=== PATIENT | female | born 1980 | race Caucasian/White ===

== ENCOUNTER → 2016-12-13 | Outpatient (CLI) | payer BC, OTHER ==
--- NOTE | 2016-12-13 12:19 | XR ---
EXAMINATION TYPE: XR chest 2V DATE OF EXAM ORDERED: 12/13/2016 HISTORY: R05 Cough. REFERENCE: None. FINDINGS: The lungs are clear. Pleural spaces are clear. Heart size is normal. IMPRESSION: NORMAL CHEST.
== END | disposition home or self-care (01) ==
LOC: RADXRMAIN 11:36
PROVIDERS: ATTEND Family Medicine
DX: R05 Cough (principal)
CPT/HCPCS: 71020

== ENCOUNTER 2018-07-23 21:30 | Observation (INO) | payer BC, OTHER ==
[2018-07-23] MEDS ORDERED: KETOROLAC 30 MG/ML 1 ML VIAL IVP STA (23:12)
--- NOTE | 2018-07-23 23:12 | ED ---
General Adult HPI - General Source: patient, family Mode of arrival: ambulatory Limitations: no limitations <Marek Venegas - Last Filed: 07/24/18 02:12> <Giorgi Combs - Last Filed: 07/24/18 08:41> - General Chief complaint: Abdominal Pain Stated complaint: Abd.pain Time Seen by Provider: 07/23/18 22:58 - History of Present Illness Initial comments: 38 year old female since to the emergency department for a chief complaint of abdominal pain. Patient states this started this morning. Patient states the pain is in the right side of the abdomen mostly in the lower area. Patient states this is worsened with eating. Patient states she's also feels bloated. Patient states walking makes the pain worse. She states laying flat does make it better but it is still painful. She denies fevers or chills. Patient has no other complaints at this time including shortness of breath, chest pain, nausea or vomiting, headache, or visual changes. (Marek Venegas) - Related Data Allergies Allergy/AdvReac Type Severity Reaction Status Date / Time No Known Allergies Allergy Verified 07/24/18 08:03 Review of Systems ROS Other: All systems not noted in ROS Statement are negative. <Marek Venegas - Last Filed: 07/24/18 02:12> ROS Other: All systems not noted in ROS Statement are negative. <Giorgi Combs - Last Filed: 07/24/18 08:41> ROS Statement: Those systems with pertinent positive or pertinent negative responses have been documented in the HPI. Past Medical History Past Medical History: No Reported History Additional Past Medical History / Comment(s): depression History of Any Multi-Drug Resistant Organisms: None Reported Past Surgical History: Section Past Psychological History: Depression Smoking Status: Current every day smoker Past Alcohol Use History: Occasional Past Drug Use History: None Reported <Marek Venegas - Last Filed: 07/24/18 02:12> General Exam Limitations: no limitations General appearance: alert, in no apparent distress Head exam: Present: atraumatic, normocephalic, normal inspection Eye exam: Present: normal appearance, PERRL, EOMI. Absent: scleral icterus, conjunctival injection, periorbital swelling ENT exam: Present: normal exam, mucous membranes moist Neck exam: Present: normal inspection, full ROM. Absent: tenderness, meningismus, lymphadenopathy Respiratory exam: Present: normal lung sounds bilaterally. Absent: respiratory distress, wheezes, rales, rhonchi, stridor Cardiovascular Exam: Present: regular rate, normal rhythm, normal heart sounds. Absent: systolic murmur, diastolic murmur, rubs, gallop, clicks GI/Abdominal exam: Present: soft, tenderness (Tenderness noted in the right lower quadrant, positive obturator sign, positive guarding without rebound.), normal bowel sounds. Absent: distended, guarding, rebound, rigid Neurological exam: Present: alert, oriented X3, CN II-XII intact Psychiatric exam: Present: normal affect, normal mood <Marek Venegas - Last Filed: 07/24/18 02:12> Vital Signs 07/23/18 07/23/18 07/24/18 22:14 23:19 01:16 Temperature 98.9 F 98.1 F Pulse Rate 100 61 Respiratory 20 18 18 Rate Blood Pressure 124/82 103/59 O2 Sat by Pulse 111 H 97 Oximetry 07/24/18 07/24/18 01:52 03:19 Temperature 98.9 F Pulse Rate 76 69 Respiratory 18 18 Rate Blood Pressure 121/80 99/77 O2 Sat by Pulse 98 96 Oximetry Medical Decision Making - Lab Data Result diagrams: 07/23/18 23:35 07/23/18 23:35 <Marek Venegas - Last Filed: 07/24/18 02:12> - Lab Data Result diagrams: 07/23/18 23:35 07/23/18 23:35 <Giorgi Combs - Last Filed: 07/24/18 08:41> - Medical Decision Making [id number] female presents to the emergency department for a chief complaint of abdominal pain times one day. Patient states it is mostly in the right side of the abdomen. On exam patient does have tenderness isn't in the right lower quadrant with guarding, no rebound. Patient does have leukocytosis of 15. CT of the abdomen shows a dilated appendix measuring 9-10 mm with adjacent stranding suggesting acute nonperforated appendicitis. There is also small amount of free fluid in the pelvis. Blood cultures pending. Unasyn started. Patient will be admitted for further management. (Theo,Marek P) I saw this patient in conjunction with the physician painter assistant. I performed independent history and physical exam. Agree with case management. Case discussed with Dr. Ramirez ([facility]) - Lab Data Lab Results 07/23/18 07/23/18 07/23/18 Range/Units 23:30 23:30 23:35 WBC (3.8-10.6) k/uL RBC (3.80-5.40) m/uL Hgb (11.4-16.0) gm/dL Hct (34.0-46.0) % MCV (80.0-100.0) fL MCH (25.0-35.0) pg MCHC (31.0-37.0) g/dL RDW (11.5-15.5) % Plt Count (150-450) k/uL Neutrophils % % Lymphocytes % % Monocytes % % Eosinophils % % Basophils % % Neutrophils # (1.3-7.7) k/uL Lymphocytes # (1.0-4.8) k/uL Monocytes # (0-1.0) k/uL Eosinophils # (0-0.7) k/uL Basophils # (0-0.2) k/uL Sodium 136 L (137-145) mmol/L Potassium 4.9 (3.5-5.1) mmol/L Chloride 106 (98-107) mmol/L Carbon Dioxide 23 (22-30) mmol/L Anion Gap 7 mmol/L BUN 13 (7-17) mg/dL Creatinine 0.62 (0.52-1.04) mg/dL Est GFR (CKD-EPI)AfAm >90 (>60 ml/min/1.73 sqM) Est GFR (CKD-EPI)NonAf >90 (>60 ml/min/1.73 sqM) Glucose 99 (74-99) mg/dL Calcium 9.5 (8.4-10.2) mg/dL Total Bilirubin 0.9 (0.2-1.3) mg/dL AST 19 (14-36) U/L ALT 21 (9-52) U/L Alkaline Phosphatase 56 (38-126) U/L Total Protein 6.7 (6.3-8.2) g/dL Albumin 4.1 (3.5-5.0) g/dL Amylase 34 (30-110) U/L Lipase 25 (23-300) U/L Urine Color Yellow Urine Appearance Clear (Clear) Urine pH 6.0 (5.0-8.0) Ur Specific [place] 1.016 (1.001-1.035) Urine Protein Negative (Negative) Urine Glucose (UA) Negative (Negative) Urine Ketones 3+ H (Negative) Urine Blood Negative (Negative) Urine Nitrite Negative (Negative) Urine Bilirubin Negative (Negative) Urine Urobilinogen <2.0 (<2.0) mg/dL Ur Leukocyte Esterase Negative (Negative) Urine HCG, Qual Not Detected (Not Detectd) 07/23/18 Range/Units 23:35 WBC 15.5 H (3.8-10.6) k/uL RBC 4.50 (3.80-5.40) m/uL Hgb 13.7 (11.4-16.0) gm/dL Hct 42.5 (34.0-46.0) % MCV 94.3 (80.0-100.0) fL MCH 30.5 (25.0-35.0) pg MCHC 32.4 (31.0-37.0) g/dL RDW 13.5 (11.5-15.5) % Plt Count 231 (150-450) k/uL Neutrophils % 81 % Lymphocytes % 13 % Monocytes % 4 % Eosinophils % 0 % Basophils % 0 % Neutrophils # 12.6 H (1.3-7.7) k/uL Lymphocytes # 2.0 (1.0-4.8) k/uL Monocytes # 0.7 (0-1.0) k/uL Eosinophils # 0.0 (0-0.7) k/uL Basophils # 0.0 (0-0.2) k/uL Sodium (137-145) mmol/L Potassium (3.5-5.1) mmol/L Chloride (98-107) mmol/L Carbon Dioxide (22-30) mmol/L Anion Gap mmol/L BUN (7-17) mg/dL Creatinine (0.52-1.04) mg/dL Est GFR (CKD-EPI)AfAm (>60 ml/min/1.73 sqM) Est GFR (CKD-EPI)NonAf (>60 ml/min/1.73 sqM) Glucose (74-99) mg/dL Calcium (8.4-10.2) mg/dL Total Bilirubin (0.2-1.3) mg/dL AST (14-36) U/L ALT (9-52) U/L Alkaline Phosphatase (38-126) U/L Total Protein (6.3-8.2) g/dL Albumin (3.5-5.0) g/dL Amylase (30-110) U/L Lipase (23-300) U/L Urine Color Urine Appearance (Clear) Urine pH (5.0-8.0) Ur Specific [place] (1.001-1.035) Urine Protein (Negative) Urine Glucose (UA) (Negative) Urine Ketones (Negative) Urine Blood (Negative) Urine Nitrite (Negative) Urine Bilirubin (Negative) Urine Urobilinogen (<2.0) mg/dL Ur Leukocyte Esterase (Negative) Urine HCG, Qual (Not Detectd) Disposition Is patient prescribed a controlled substance at d/c from ED?: No Time of Disposition: 01:32 <Marek Venegas - Last Filed: 07/24/18 02:12> <Giorgi Combs - Last Filed: 07/24/18 08:41> Clinical Impression: Appendicitis Disposition: ADMITTED IP TO THIS HOSP Condition: Good
[2018-07-24 00:13] LABS: Appearance,Urine Clear (Clear); Bilirubin,Urine Negative (Negative); Blood,Urine Negative (Negative); Color,Urine Yellow; Glucose,Urine (UA) Negative (Negative); Ketones,Urine 3+ (Negative); Leukocyte Esterase,Urine Negative (Negative); Nitrite,Urine Negative (Negative); Protein,Urine Negative (Negative); Specific Gravity,Urine 1.016 (1.001-1.035); Urobilinogen,Urine <2.0 mg/dL (<2.0)
[2018-07-24 00:14] LABS: Basophils % (A) 0 %; Eosinophils % (A) 0 %; HCT 42.5 % (34.0-46.0); HGB 13.7 gm/dL (11.4-16.0); Lymphocytes % (A) 13 %; MCH 30.5 pg (25.0-35.0); MCHC 32.4 g/dL (31.0-37.0); MCV 94.3 fL (80.0-100.0); Monocytes # (A) 0.7 k/uL (0-1.0); Monocytes % (A) 4 %; Neutrophils # (A) 12.6 k/uL (1.3-7.7); Neutrophils % (A) 81 %; Platelet Count 231 k/uL (150-450); RDW 13.5 % (11.5-15.5); WBC 15.5 k/uL (3.8-10.6)
[2018-07-24 00:26] LABS: ALT 21 U/L (9-52); AST 19 U/L (14-36); Albumin 4.1 g/dL (3.5-5.0); Alkaline Phosphatase 56 U/L (38-126); Amylase 34 U/L (30-110); Anion Gap 7 mmol/L; Blood Urea Nitrogen 13 mg/dL (7-17); Calcium 9.5 mg/dL (8.4-10.2); Carbon Dioxide 23 mmol/L (22-30); Chloride 106 mmol/L (98-107); Glucose 99 mg/dL (74-99); Lipase 25 U/L (23-300); Potassium 4.9 mmol/L (3.5-5.1); Sodium 136 mmol/L (137-145); Total Bilirubin 0.9 mg/dL (0.2-1.3); Total Protein 6.7 g/dL (6.3-8.2)
[2018-07-24] MEDS ORDERED: SODIUM CHLORIDE 0.9% 1,000 ML IV STA (00:45)
--- NOTE | 2018-07-24 01:15 | CT ---
EXAM: CT Abdomen and Pelvis With Intravenous Contrast CLINICAL HISTORY: Abdominal pain TECHNIQUE: Axial computed tomography images of the abdomen and pelvis with intravenous contrast. CTDI is 0.085, 0.085, 8.4, 24 mGy and DLP is 756.7 mGy-cm. This CT exam was performed using one or more of the following dose reduction techniques: automated exposure control, adjustment of the mA and/or kV according to patient size, and/or use of iterative reconstruction technique. COMPARISON: Ultrasound abdomen dated 11/25/2014 FINDINGS: Lung bases: Unremarkable. No mass. No consolidation. ABDOMEN: Liver: Unremarkable. Gallbladder and bile ducts: Unremarkable. Pancreas: Unremarkable. Spleen: Unremarkable. Adrenals: Unremarkable. Kidneys and ureters: Nonobstructing calculus within the right kidney. Cysts within the right kidney. Stomach and bowel: Unremarkable. PELVIS: Appendix: Dilated appendix measuring 9-10 mm with adjacent stranding suggesting acute nonperforated appendicitis. Bladder: Unremarkable. Reproductive: Involuting follicle within left ovary. ABDOMEN and PELVIS: Intraperitoneal space: Small amount of free fluid the pelvis. Bones/joints: No acute fracture. No dislocation. Soft tissues: Unremarkable. Vasculature: Unremarkable. No abdominal aortic aneurysm. Lymph nodes: Unremarkable. Tubes, lines and devices: Tube occlusion device is noted. IMPRESSION: 1. Dilated appendix measuring 9-10 mm with adjacent stranding suggesting acute nonperforated appendicitis. 2. Small amount of free fluid the pelvis. 3. Nonobstructing calculus within the right kidney.
[2018-07-24] MEDS ORDERED: MORPHINE SULFATE 4 MG/ML SYRINGE IVP STA (01:23)
[2018-07-24] MEDS ORDERED: ONDANSETRON 4 MG/2 ML VIAL IVP PRN (02:10)
[2018-07-24] MEDS ORDERED: NALOXONE 0.4 MG/ML 1 ML VIAL IV PRN (02:10)
[2018-07-24] MEDS: AMPICILLIN-SULBACTAM 3 GM in SODIUM CHLORIDE 0.9% 100 ML IVPB SCH ×3 (02:12→17:38)
[2018-07-24] MEDS ORDERED: ACETAMINOPHEN IV (For NPO) 1,000 MG in EMPTY BAG 1 BAG IVPB PRN (02:12)
[2018-07-24] MEDS: SODIUM CHLORIDE 0.9% 1,000 ML IV SCH ×3 (02:14→23:52)
[2018-07-24] MEDS: MORPHINE SULFATE 4 MG/ML SYRINGE IV PRN ×3 (08:56→20:11)
[2018-07-24] MEDS: LORazepam 2 MG/ML INJ IV PRN ×2 (09:24→22:17)
--- NOTE | 2018-07-24 11:26 | P.HPIM ---
<Deedee Bishop A - Last Filed: 07/24/18 11:23> History of Present Illness H&P Date: 07/24/18 Chief Complaint: abdominal pain CHIEF COMPLAINT: Abdominal pain HISTORY OF PRESENT ILLNESS: 38 year old female who presented to the emergency room due to a chief complaint of right lower quadrant abdominal pain lasting one day in duration. Patient reports nausea but denies emesis. She denies constipation or diarrhea. WBC on admission 15.5. PAST MEDICAL HISTORY: See list. PAST SURGICAL HISTORY: See list. MEDICATIONS: See list. ALLERGIES: See list. SOCIAL HISTORY: No illicit drug use. REVIEW OF SYSTEMS: CONSTITUTIONAL: Denies fever or chills. HEENT: Denies blurred vision, vision changes, or eye pain. Denies hemoptysis ENDOCRINE: Denies heat or cold intolerance. CARDIOVASCULAR: Denies chest pain or pressure. RESPIRATORY: No shortness of breath. GASTROINTESTINAL: Reports right lower quadrant abdominal pain. Reports nausea. Denies vomiting. NEURO: Denies history of seizures. PSYCH: No depression or suicidal ideation HEMATOLOGIC: Denies bleeding disorders. LYMPHATIC: The patient denies any lumps and bumps around the neck. GENITOURINARY: Denies any blood in urine or increased urinary frequency. MUSCULOSKELETAL: Denies myalgias. Denies joint swelling. Denies decreased range of motion beyond patients baseline. SKIN: Denies pruitis. Denies rash. PHYSICAL EXAM: VITAL SIGNS: Currently stable. GENERAL: Well-developed in no acute distress. HEENT: No sclera icterus. Extraocular movements grossly intact. Moist buccal mucosa. Head is atraumatic, normocephalic. Hears conversational speech. No nasal drainage. NECK: Supple without lymphadenopathy. CHEST: Non-labored respirations and equal bilateral excursions. CARDIOVASCULAR: Regular rate with regular rhythm. Palpable 2+ radial pulses. ABDOMEN: Soft. Nondistended. Pain and tenderness upon palpation of right lower quadrant. MUSCULOSKELETAL: No clubbing, cyanosis or edema. NEUROLOGIC: No focal or lateralizing signs. Cranial nerves II through XII grossly intact. PSYCH: Appropriate affect. Alert and oriented to person, place and time. SKIN: Well perfused. Good skin turgor. IMAGING: CT abdomen and pelvis: Dilated appendix measuring 9-10 mm with adjacent stranding suggesting acute nonperforated appendicitis ASSESSMENT: 1. Acute appendicitis 2. Leukocytosis PLAN: 1. Nothing by mouth 2. Continue IV fluids 3. Antibiotics 4. Patient scheduled for laparoscopic appendectomy today with Dr. Ramirez. Nurse practitioner note has been reviewed by physician. Signing provider agrees with the documented findings, assessment, and plan of care. Past Medical History Past Medical History: No Reported History Additional Past Medical History / Comment(s): depression History of Any Multi-Drug Resistant Organisms: None Reported Past Surgical History: Section Past Psychological History: Depression Smoking Status: Current every day smoker Past Alcohol Use History: Occasional Past Drug Use History: None Reported Medications and Allergies Home Medications Medication Instructions Recorded Confirmed Type Acetaminophen Tab [Tylenol Tab] 650 mg PO Q6H PRN 07/24/18 07/24/18 History Citalopram Hydrobromide 40 mg PO DAILY 07/24/18 07/24/18 History [Citalopram HBr] Allergies Allergy/AdvReac Type Severity Reaction Status Date / Time No Known Allergies Allergy Verified 07/24/18 08:03 Physical Exam Vitals: Vital Signs Temp Pulse Pulse Resp BP BP Pulse Ox 07/24/18 09:34 76 18 07/24/18 09:00 98.2 F 76 18 133/86 97 07/24/18 08:52 97.6 F 71 18 107/63 97 07/24/18 03:19 98.9 F 69 18 99/77 96 07/24/18 03:00 121/74 95 07/24/18 02:00 121/80 95 07/24/18 01:52 76 18 121/80 98 07/24/18 01:16 98.1 F 61 18 103/59 97 07/23/18 23:19 18 07/23/18 22:14 98.9 F 100 20 124/82 111 H Intake and Output 07/23/18 07/24/18 07/24/18 22:59 06:59 14:59 Other: Voiding Method Toilet Weight 68.039 kg 64.5 kg Results CBC & Chem 7: 07/23/18 23:35 07/23/18 23:35 Labs: Abnormal Lab Results - Last 24 Hours (Table) 07/23/18 07/23/18 07/23/18 Range/Units 23:30 23:35 23:35 WBC 15.5 H (3.8-10.6) k/uL Neutrophils # 12.6 H (1.3-7.7) k/uL Sodium 136 L (137-145) mmol/L Plasma Lactic Acid Job (0.7-2.0) mmol/L Urine Ketones 3+ H (Negative) 07/24/18 Range/Units 01:47 WBC (3.8-10.6) k/uL Neutrophils # (1.3-7.7) k/uL Sodium (137-145) mmol/L Plasma Lactic Acid Job 0.6 L (0.7-2.0) mmol/L Urine Ketones (Negative) <Dajuan Ramirez - Last Filed: 07/24/18 12:02> Physical Exam Vitals: Vital Signs Temp Pulse Pulse Resp BP BP Pulse Ox 07/24/18 11:36 98.4 F 68 16 119/70 98 07/24/18 09:34 76 18 07/24/18 09:00 98.2 F 76 18 133/86 97 07/24/18 08:52 97.6 F 71 18 107/63 97 07/24/18 03:19 98.9 F 69 18 99/77 96 07/24/18 03:00 121/74 95 07/24/18 02:00 121/80 95 07/24/18 01:52 76 18 121/80 98 07/24/18 01:16 98.1 F 61 18 103/59 97 07/23/18 23:19 18 07/23/18 22:14 98.9 F 100 20 124/82 111 H Intake and Output 07/23/18 07/24/18 07/24/18 22:59 06:59 14:59 Other: Voiding Method Toilet Weight 68.039 kg 64.5 kg Results CBC & Chem 7: 07/23/18 23:35 07/23/18 23:35 Labs: Abnormal Lab Results - Last 24 Hours (Table) 07/23/18 07/23/18 07/23/18 Range/Units 23:30 23:35 23:35 WBC 15.5 H (3.8-10.6) k/uL Neutrophils # 12.6 H (1.3-7.7) k/uL Sodium 136 L (137-145) mmol/L Plasma Lactic Acid Job (0.7-2.0) mmol/L Urine Ketones 3+ H (Negative) 07/24/18 Range/Units 01:47 WBC (3.8-10.6) k/uL Neutrophils # (1.3-7.7) k/uL Sodium (137-145) mmol/L Plasma Lactic Acid Job 0.6 L (0.7-2.0) mmol/L Urine Ketones (Negative) Assessment and Plan Assessment: We'll perform laparoscopic appendectomy
[2018-07-24] MEDS ORDERED: IV FLUID CONTINUATION 1,000 ML IV ONE (11:52)
[2018-07-24] MEDS ORDERED: DEXAMETHASONE SOD PHOSPHATE 10 MG/ML 1 ML VIAL IV ONE (12:05)
[2018-07-24] MEDS ORDERED: HEPARIN SODIUM,PORCINE 5,000 UNIT/ML 1 ML VIAL SQ ONE (12:11)
[2018-07-24] MEDS ORDERED: MIDAZOLAM 2 MG/2 ML VIAL IVP ONE (12:12)
[2018-07-24] MEDS ORDERED: PROPOFOL 10 MG/ML 20 ML VIAL IV ONE (12:32)
[2018-07-24] MEDS ORDERED: fentaNYL (PF) 50 MCG/ML 2 ML AMP ONE (12:32)
[2018-07-24] MEDS ORDERED: MIDAZOLAM 2 MG/2 ML VIAL ONE (12:32)
[2018-07-24] MEDS ORDERED: NEOSTIGMINE 1 MG/ML 10 ML VIAL ONE (12:32)
[2018-07-24] MEDS ORDERED: GLYCOPYRROLATE 0.2 MG/ML 2 ML VIAL ONE (12:32)
[2018-07-24] MEDS ORDERED: ROCURONIUM BROMIDE 10 MG/ML 10 ML VIAL IV ONE (12:32)
[2018-07-24] MEDS ORDERED: LIDOCAINE 1% INJ 10MG/ML (20 ML MDV) ONE (12:32)
[2018-07-24] MEDS ORDERED: BUPIVACAIN-EPI 0.25%-1:200,000 30 ML VIAL SQ ONE (12:35)
--- NOTE | 2018-07-24 13:13 | P.OP ---
Date of Procedure: 07/24/18 Preoperative Diagnosis: Acute appendicitis Postoperative Diagnosis: Acute appendicitis Procedure(s) Performed: Laparoscopic appendectomy Anesthesia: NINI Surgeon: Dajuan Ramirez Estimated Blood Loss (ml): 5 Pathology: other (Appendix) Condition: stable Disposition: PACU Description of Procedure: Iva patient's placed on the operating table in the supine position. The patient received general anesthesia. The abdomen was prepped and draped in the usual sterile fashion. The skin was anesthetized 1% local Xylocaine at the trocar sites. Using an 11 blade the skin was incised at the umbilicus. The umbilicus was grasped with a Arnold clamp and then a Veress needle was placed into the peritoneal cavity. Position of the Veress needle was confirmed with positive drop test. After adequate insufflation a 5 mm trocar was placed into the peritoneal cavity. The abdomen was further insufflated. And then the laparoscope was placed in the peritoneal cavity. Next a 5 mm trocar was placed in the midline suprapubic position. And then a 10 mm trocar was placed in the midline epigastric position. The patient was rotated with the right side up and in Trendelenburg. The appendix was visualized. The appendix appeared to be inflamed. The appendix was grasped and then using the Harmonic scissors the mesoappendix was divided. A PDS Endoloop was then placed around the base of the appendix. And then the appendix was divided using Harmonic scissors. The appendix was placed into an Endo Catch and brought out through the 10 mm trocar site. The abdomen was irrigated. There is no bleeding seen. The trochars withdrawn. The skin was closed interrupted 3-0 Monocryl suture. Dermabond dressing was applied. Patient was sent to recovery room in stable condition.
[2018-07-24] MEDS ORDERED: HYDROmorphone 1 MG/ML 1 ML SYRINGE IVP ONE (13:31)
[2018-07-24] MEDS: CITALOPRAM HYDROBROMIDE 20 MG TAB PO SCH (21:53)
[2018-07-25] MEDS: MORPHINE SULFATE 4 MG/ML SYRINGE IV PRN ×3 (00:33→12:35)
[2018-07-25] MEDS: AMPICILLIN-SULBACTAM 3 GM in SODIUM CHLORIDE 0.9% 100 ML IVPB SCH ×2 (02:12→09:56)
[2018-07-25 07:45] VITALS: BP 117/71; RESP 16; TEMP 98.1
[2018-07-25] MEDS: CITALOPRAM HYDROBROMIDE 20 MG TAB PO SCH (08:30)
[2018-07-25 08:59] VITALS: PULSE 55
[2018-07-25] MEDS ORDERED: HYDROcodone/APAP 7.5-325MG 1 EACH TAB PO PRN (09:17)
[2018-07-25] MEDS ORDERED: ACETAMINOPHEN TAB 500 MG TAB PO PRN (13:05)
--- NOTE | 2018-07-26 06:34 | P.DS ---
Providers Date of admission: 07/24/18 01:33 Expected date of discharge: 07/25/18 Attending physician: Dajuan Ramirez Primary care physician: Lang Lazar [facility] Course: This is a 38-year-old female who was admitted to the hospital for acute appendicitis. Patient underwent laparoscopic appendectomy. Please see hospital chart for details. Patient did well postoperatively. Procedures: Laparoscopic appendectomy Patient Condition at Discharge: Good Plan - Discharge Summary Discharge Rx Participant: No New Discharge Prescriptions: New Docusate [Colace] 100 mg PO BID #20 capsule HYDROcodone/APAP 7.5-325MG [[place] 7.5-325] 1 tab PO Q4H PRN 3 Days #18 tab PRN Reason: Pain No Action Acetaminophen Tab [Tylenol Tab] 650 mg PO Q6H PRN PRN Reason: Pain Citalopram Hydrobromide [Citalopram HBr] 40 mg PO DAILY Discharge Medication List Acetaminophen Tab [Tylenol Tab] 650 mg PO Q6H PRN 07/24/18 [History] Citalopram Hydrobromide [Citalopram HBr] 40 mg PO DAILY 07/24/18 [History] Docusate [Colace] 100 mg PO BID #20 capsule 07/25/18 [Rx] HYDROcodone/APAP 7.5-325MG [[place] 7.5-325] 1 tab PO Q4H PRN 3 Days #18 tab 07/25 [Rx] Follow up Appointment(s)/Referral(s): Nathan Lazar MD [Primary Care Provider] - 08/01/18 10:10 am (please arrive a few minutes early to fill out paperwork. please bring insurance cards and drivers license with you. ) Dajuan Ramirez MD [STAFF PHYSICIAN] - 1 Week Discharge Disposition: HOME SELF-CARE
== END 2018-07-25 15:19 | disposition home or self-care (01) ==
LOC: EC 21:30 → 3NMEDONC 07-24 01:33 → 1SOBS 07-24 08:35
PROVIDERS: ADMIT Surgery; ATTEND Surgery
DX: K35.80 Unspecified acute appendicitis (principal); F32.9 Major depressive disorder, single episode, unspecified; F17.210 Nicotine dependence, cigarettes, uncomplicated; Z79.899 Other long term (current) drug therapy
CPT/HCPCS: 44970; 96376; 96361; 96374; 96375; 99285; 36415; 88304; 80053; 82150; 83605; 83690; 85025; 81003; 81025; 87040; 74177; G0378 ×3; J2250; J2060; J2270 ×2; J1644; J1100; J2710; J2405; J2001; J3010; J1885; J1170; J0295 ×2; J2704; Q9967

== ENCOUNTER → 2019-06-21 | Outpatient (CLI) | payer SELFPAY ==
[2019-06-21 16:26] LABS: Basophils # (A) 0.1 k/uL (0-0.2); Basophils % (A) 1 %; Eosinophils # (A) 0.1 k/uL (0-0.7); Eosinophils % (A) 2 %; HCT 45.9 % (34.0-46.0); HGB 14.7 gm/dL (11.4-16.0); Lymphocytes # (A) 2.3 k/uL (1.0-4.8); Lymphocytes % (A) 40 %; MCH 31.2 pg (25.0-35.0); MCV 97.7 fL (80.0-100.0); Mean Platelet Volume 9.9; Monocytes # (A) 0.3 k/uL (0-1.0); Monocytes % (A) 5 %; Neutrophils # (A) 2.8 k/uL (1.3-7.7); Neutrophils % (A) 48 %; Platelet Count 216 k/uL (150-450); RDW 13.3 % (11.5-15.5); WBC 5.9 k/uL (3.8-10.6)
[2019-06-21 18:32] LABS: Erythrocyte Sedimentation Rate 2 mm/hr (0-20)
[2019-06-21 23:47] LABS: % Iron Saturation 21.74 (12.00-45.00); African American GFR (CKD) 125.6 (60.0-200.0); Albumin 4.8 g/dL (3.80-4.90); Albumin/Globulin Ratio 2.53 (1.60-3.17); Anion Gap 7.6 mmol/L (4.00-12.00); BUN/Creat Ratio 14.29 Ratio (12.00-20.00); Carbon Dioxide 25.4 mmol/L (21.6-31.8); Globulin 1.9 g/dL (1.6-3.3); Non-African American GFR(CKD) 108.4 (60.0-200.0); Potassium 5.2 mmol/L (3.5-5.5); Total Bilirubin 0.8 mg/dL (0.2-1.2); Total Protein 6.7 g/dL (6.2-8.2)
[2019-06-21 23:54] LABS: T4, Free (Free Thyroxine) 1.1 ng/dL (0.80-1.80)
[2019-06-21 23:59] LABS: Ferritin 11.8 ng/mL (10.0-291.0)
[2019-06-22 00:45] LABS: Protein, Total 6.7 g/dL (6.2-8.2)
[2019-06-24 13:20] LABS: Albumin 4.3 g/dL (3.80-4.90); Gamma Globulin 0.85 g/dL (0.70-1.50)
== END | disposition home or self-care (01) ==
LOC: LABWHC1 15:04
PROVIDERS: ATTEND Nurse Practitioner Family
DX: R63.4 Abnormal weight loss (principal); Z80.6 Family history of leukemia
CPT/HCPCS: 36415; 80053; 82728; 83540; 83550; 84165; 84439; 84443; 84481; 85025; 85652

== ENCOUNTER → 2021-09-28 | Outpatient (CLI) | payer OTHER ==
--- NOTE | 2021-09-28 16:02 | US ---
EXAMINATION TYPE: US pelvis complete transvag DATE OF EXAM: 09/28/2021 COMPARISON: NONE CLINICAL HISTORY: 41-year-old female N93.9 ABNORMAL UTERINE AND VAGINAL BLEEDING, unspecified. DUB fo r a few weeks, pelvic pain, tubal ligation, , 3 c-sections TECHNIQUE: Transabdominal sonographic images of the pelvis were acquired. Transvaginal sonographic i mages were medically necessary to better assess the following anatomy: all organs Date of LMP: 08/20/2021 FINDINGS: EXAM MEASUREMENTS: Uterus: 9.6 x 6.2 x 4.2 cm Endometrial Stripe: 0.5 cm Right Ovary: 2.8 x 2.2 x 2.3 cm Left Ovary: 3.0 x 2.5 x 2.1 cm 1. Uterus: Anteverted and otherwise wnl. Normal scar noted along the anterior lower uteri ne segment. 2. Endometrium: wnl 3. Right Ovary: wnl 4. Left Ovary: wnl 5. Bilateral Adnexa: wnl 6. Posterior cul-de-sac: mild free fluid IMPRESSION: Mild cul-de-sac free fluid likely physiologic. Normal follicular change in the ovaries. Endometrial s tripe measuring 5 mm.
[2021-09-28 18:47] LABS: Basophils # (A) 0.07 X 10*3/uL (0.00-0.10); Basophils % (A) 1.2 %; Eosinophils # (A) 0.21 X 10*3/uL (0.04-0.35); Eosinophils % (A) 3.6 %; HGB 13.1 g/dL (12.0-15.0); Immature Grans, Automated 0.2 %; Lymphocytes # (A) 2.57 X 10*3/uL (0.90-5.00); Lymphocytes % (A) 43.7 %; MCH 31.6 pg (27.0-32.0); MCHC 32.8 g/dL (32.0-37.0); MCV 96.6 fL (80.0-97.0); Mean Platelet Volume 12.5 fL (9.5-12.2); Monocytes # (A) 0.54 X 10*3/uL (0.20-1.00); Monocytes % (A) 9.2 %; NRBC Per 100 WBC 0 /100 WBCS (0.0-0.0); Neutrophils # (A) 2.48 X 10*3/uL (1.80-7.70); Neutrophils % (A) 42.1 %; Platelet Count 238 X 10*3/uL (140-440); RBC 4.14 X 10*6/uL (4.10-5.20); RDW 14.1 % (11.5-14.5); WBC 5.88 X 10*3/uL (4.50-10.00)
== END | disposition home or self-care (01) ==
LOC: RADUSWWP 12:48
PROVIDERS: ATTEND Family Medicine
DX: N93.9 Abnormal uterine and vaginal bleeding, unspecified (principal)
CPT/HCPCS: 36415; 76830; 76856; 84702; 85025

== ENCOUNTER 2024-07-21 11:15 | Emergency (ER) | payer OTHER ==
[2024-07-21] MEDS: ORPHENADRINE 30 MG/ML 2 ML VIAL IM STA (11:42)
[2024-07-21] MEDS: methylPREDNISolone SOD SUCCI 125 MG/2 ML VIAL IM ONE (11:42)
[2024-07-21] MEDS: KETOROLAC 15 MG/ML 1 ML VIAL IM STA (11:43)
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
--- NOTE | 2024-07-21 12:38 | XR ---
EXAMINATION TYPE: XR lumbar spine 2 or 3V DATE OF EXAM: 07/21/2024 CLINICAL HISTORY: pain TECHNIQUE: Three views of the lumbar spine are submitted. COMPARISON: Lumbar spine radiograph 09/27/2015, MRI lumbar spine 10/12/2015, CT abdomen and pelvis 2018 FINDINGS: There are 5 lumbar type vertebral bodies identified. The lumbar spine shows satisfactory alignment w ithout evidence of acute fracture or dislocation. Vertebral body heights are within normal limits. Disc space narrowing with endplate sclerosis and at L4-L5 and L5-S1. Spina bifida occulta at L5. Ante rior osteophyte at L4-L5. The overlying soft tissue appears unremarkable. Bilateral tubal ligation c lips within the pelvis. IMPRESSION: 1. No acute fracture or dislocation is seen in the lumbar spine. 2. Mild lower lumbar spine degenerative disc disease. [facility], , 07/21/2024 12:36 PM
[2024-07-21] MEDS: HYDROmorphone 1 MG/ML 1 ML SYRINGE IM STA (13:15)
[2024-07-21] MEDS: ACET/COD 300 MG/30 MG STARTER PACK 6 TAB BTL PO STA (13:54)
[2024-07-21 14:14] VITALS: BP 136/80; PULSE 84; RESP 18; TEMP 98
== END 2024-07-21 14:14 | disposition home or self-care (01) ==
LOC: EC 11:15
DX: S39.012A Strain of muscle, fascia and tendon of lower back, initial encounter (principal); M54.16 Radiculopathy, lumbar region; F17.290 Nicotine dependence, other tobacco product, uncomplicated; V49.60XA Unspecified car occupant injured in collision with unspecified motor vehicles in traffic accident, initial encounter; Y92.410 Unspecified street and highway as the place of occurrence of the external cause
CPT/HCPCS: 72100; 99284; 96372 ×4; J2360; J1171; J1885; J2919